=== PATIENT | female | born 1965 | race Caucasian/White ===

== ENCOUNTER → 2018-01-02 | Day surgery (SDC) | payer OTHER ==
[~2018-01-02] VITALS: Ht 157.5 cm; Wt 72.6 kg
[~2018-01-02] MED LIST: ABILIFY 15MG15 MG PO; ABILIFY 5MG5 MG PO; ACETAMINOPHEN/H1 TAB PO; CLONAZEPAM0.5 MG PO; COUMADIN 2 MG TA2 MG PO; COUMADIN 4MG TAB4 MG PO; COUMADIN 5 MG TA5 MG PO; DEXILANT60 MG PO; DICLOFENAC SOD75 MG PO; EFFEXOR XR150 MG PO; ENDOCET1 TAB PO; HYDROMORPHONE HC2 MG PO; LOVENOX 4040 MG/0.4 SC; MULTIVITAMIN1 TAB PO; ROXICODONE5 MG PO; VALIUM 10 MG. T10 MG PO; VANCOCIN IV; VANCOMYCIN 11000 MG IV; VICODIN5-300 PO; XARELTO20 MG PO
--- NOTE | 2018-01-02 10:15 | Operative Report ---
Operative/Inv Procedure Report Surgery Date: 01/02/18 Name of Procedure: urethral sling, cysto Pre-Operative Diagnosis: CRAIG Post-Operative Diagnosis: same Estimated Blood Loss: less than 50ml Surgeon/Epic Willow Analyst: Shelby Vega MD Anesthesia: local monitored anesthesi Implants: vaginal mesh Complications: none Condition: stable Operative Indication: stress incontinence Operative/Procedure Note Note: 50-year-old 2-year-old female with a history of stress urinary incontinence. She has had a procedure in the past with Dr.'s Grullon however she spent some consultations and needed to be removed. She has had continuous stress incontinence that is very bothersome. She was very interested in surgical repair. The risks benefits and alternatives of the surgery were given and all questions were answered. Consent was signed in the holding area. Patient was taken to the operating room placed on the operating table in the supine position. Timeout was performed. IV antibiotics were infused. IV sedation was started and she was placed in the dorsal lithotomy position. She was prepped and draped in standard sterile fashion. SCDs were placed prior to the start of the surgery. Osorio catheter was placed and the bladder was drained. Since retractor was placed and 1% lidocaine was infiltrated into the anterior vaginal wall and vaginal fornices. Incision was made beneath the urethra. The vaginal flaps are created taking care not to injure the urethra. The Coloplast Altis sling kit was then opened and the trochars provided were used to place the sling. Sling was seen to be in a nice tension-free horizontal orientation beneath the urethra. There was no penetration of the vaginal fornices with the sling. The [place] between the sling and the mesh allowed tightening without [place] the mesh to tight. Area was grossly irrigated with bacitracin irrigation. The tightening Prolene stitch suture was then cut. The incision was closed with 3-0 Vicryl running locking every third suture. Osorio catheter was removed and the bladder was evaluated. The bladder had no injury and there was no abnormalities and the ureters were in the normal anatomic position. Sponge and needle count were correct at the end of the case. Patient tolerated procedure well. She was transferred to recovery in stable condition. Findings: No mesh in the bladder, urethra, or vaginal fornices Discharge Disposition: Same Day Admissions
== END ==
LOC: STS 01:02
DX: N39.3 Stress incontinence (female) (male) (principal); R35.0 Frequency of micturition; R35.1 Nocturia; N32.89 Other specified disorders of bladder; G47.33 Obstructive sleep apnea (adult) (pediatric); Z86.711 Personal history of pulmonary embolism; M79.7 Fibromyalgia; F17.200 Nicotine dependence, unspecified, uncomplicated; K21.9 Gastro-esophageal reflux disease without esophagitis
CPT/HCPCS: C1771; J0131; J0744; J2250; J7060